=== PATIENT | male | born 1950 | race Caucasian/White ===

== ENCOUNTER 2017-01-14 05:26 | Inpatient (IN) ==
[2017-01-14] MEDS ORDERED: ATIVAN IV ONE (05:45)
[2017-01-14] MEDS ORDERED: ATIVAN ONE (05:46)
[2017-01-14 06:12] LABS: ALLEN TEST YES; BLOOD TYPE ARTERIAL; DRAW SITE R RADIAL; METHB 0.6 % (0.0-1.5); O2(CT) 13.5 mL/dL (15.0-23.0); PCO2(98.6) 26 mmHg (35-45); PO2(98.6) 106 mmHg (60-100); SAMPLE BLOOD; SAO2 98.2 % (95.0-100.0); THB 9.9 g/dL (11.5-17.4); pH(98.6) 7.41 (7.35-7.45)
[2017-01-14 06:14] LABS: MODALITY ROOM AIR
[2017-01-14 06:19] LABS: BASO% 0.2 % (0.0-0.8); HEMATOCRIT 32.7 % (42.0-52.0); HEMOGLOBIN 10.8 g/dL (14.0-18.0); IMM GRAN# 0.02 X1000 (0.0-0.04); IMM GRAN% 0.2 % (0.0-0.5); LYMPH# 0.41 X1000 (1.2-3.4); LYMPH% 3.7 % (20.5-51.1); MANUAL DIFF NEEDED? NO; MCH 31.7 PG (27-31); MCV 95.9 FL (81-99); MONO# 0.32 X1000 (0.11-0.59); MONO% 2.9 % (1.7-9.3); MPV 10.1 FL (7.4-10.4); PLT 225 X1000 (130-400); RBC 3.41 XMIL (4.7-6.1)
[2017-01-14 06:38] LABS: INR 0.97; PROTIME 10.2 Seconds (9.2-11.7); PTT 26.8 Seconds (22.0-36.0)
[2017-01-14 06:44] LABS: URINE CULTURE NEEDED? NO; URINE MICRO REVIEW NEEDED? NO; URINE SOURCE CATH
[2017-01-14 06:47] LABS: BILIRUBIN URINE NEGATIVE (NEGATIVE); BLOOD URINE NEGATIVE (NEGATIVE); COLOR YELLOW; GLUCOSE URINE TRACE mg/dL (NEGATIVE); LEUKOCYTES URINE NEGATIVE (NEGATIVE); NITRITE URINE NEGATIVE (NEGATIVE); PROTEIN URINE NEGATIVE (NEGATIVE); SP GRAVITY URINE 1.012; TURBIDITY URINE CLEAR (CLEAR); UROBILINOGEN URINE NORMAL (NORMAL)
[2017-01-14 06:49] LABS: UR EPITHELIAL CELLS <10 /HPF (<10); URINE BACTERIA NEGATIVE /HPF; URINE RBC <10 /HPF (<10); URINE WBC <10 /HPF (<10)
[2017-01-14 06:53] LABS: ALBUMIN 3.7 g/dL (3.5-5.0); CALCIUM 8.6 mg/dL (8.8-10.2); POTASSIUM 4.3 mmol/L (3.5-5.1); TOTAL BILIRUBIN 0.28 mg/dL (0.20-1.00)
[2017-01-14 06:58] LABS: UR AMPHETAMINES QUAL NONE DETECTED (NONE DETECT); UR BARBITUATES QUAL NONE DETECTED (NONE DETECT); UR BENZODIAZEPIN QUAL NONE DETECTED (NONE DETECT); UR CANNABINOIDS QUAL NONE DETECTED (NONE DETECT); UR COCAINE QUAL NONE DETECTED (NONE DETECT); UR METHADONE QUAL NONE DETECTED (NONE DETECT); UR OPIATES QUAL NONE DETECTED (NONE DETECT); UR OXYCODONE QUAL NONE DETECTED (NONE DETECT); UR PCP QUAL NONE DETECTED (NONE DETECT)
[2017-01-14] MEDS ORDERED: ATIVAN IV PRN (08:28)
[2017-01-14] MEDS ORDERED: D50W SYRINGE IV PRN (09:25)
[2017-01-14 09:50] LABS: IRON SATURATION 18 %; TIBC 283 ug/dL; TOTAL IRON 51 ug/dL (53-167); UNBOUND IRON 232 ug/dL (112-346)
[2017-01-14 09:53] LABS: HEMOGLOBIN A1C 7.7 % (4.8-6.0)
[2017-01-14 10:06] LABS: FREE T4 1.17 ng/dL (0.93-1.70)
[2017-01-14 10:20] LABS: FERRITIN 108 ng/mL (30-400)
[2017-01-14] MEDS ORDERED: DUONEB (A & A) INH PRN (11:00)
[2017-01-14] MEDS ORDERED: ZOFRAN IV PRN (11:00)
[2017-01-14] MEDS ORDERED: TYLENOL PO PRN (11:00)
[2017-01-14] MEDS: HUMULIN R SUBQ SCH ×3 (11:45→22:29)
[2017-01-14] MEDS: NS 1,000 ML IV SCH (11:45)
[2017-01-15] MEDS: NS 1,000 ML IV SCH (02:20)
[2017-01-15 05:40] LABS: MANUAL DIFF NEEDED? NO
[2017-01-15 05:59] LABS: INR 1.02; PROTIME 10.7 Seconds (9.2-11.7); PTT 28.8 Seconds (22.0-36.0)
[2017-01-15] MEDS: HUMULIN R SUBQ SCH ×4 (06:09→22:30)
[2017-01-15 06:13] LABS: ALBUMIN 2.9 g/dL (3.5-5.0); BASO% 0.8 % (0.0-0.8); CALCIUM 7.3 mg/dL (8.8-10.2); EOS# 0.11 X1000 (0.0-0.7); EOS% 1.3 % (0.0-10.0); HEMATOCRIT 28.2 % (42.0-52.0); HEMOGLOBIN 9.2 g/dL (14.0-18.0); LYMPH% 18.1 % (20.5-51.1); MAGNESIUM 1.9 mg/dL (1.5-2.7); MCH 31.5 PG (27-31); MCHC 32.6 g/dL (33-37); MCV 96.6 FL (81-99); MONO# 1.09 X1000 (0.11-0.59); MONO% 13.1 % (1.7-9.3); MPV 10.7 FL (7.4-10.4); NEUT% 66.7 % (42.2-75.2); PLT 197 X1000 (130-400); POTASSIUM 3.5 mmol/L (3.5-5.1); RBC 2.92 XMIL (4.7-6.1); TOTAL BILIRUBIN 0.61 mg/dL (0.20-1.00); TOTAL PROTEIN 4.8 g/dL (6.3-8.3)
[2017-01-15] MEDS: PRILOSEC PO SCH (08:25)
[2017-01-16] MEDS: HUMULIN R SUBQ SCH ×2 (06:19→13:05)
[2017-01-16] MEDS: PRILOSEC PO SCH (09:01)
[2017-01-16 09:20] VITALS: BP 146/58
== END 2017-01-16 14:00 | disposition home or self-care (01) ==
LOC: ED 05:26 → EDIPHOLD 10:54 → 3S 12:11 → 3N 01-15 17:31
PROVIDERS: ATTEND Internal Medicine

== ENCOUNTER 2017-01-17 10:39 | Inpatient (IN) ==
[2017-01-17] MEDS ORDERED: EFFEXOR XR PO ONE (14:31)
[2017-01-17 15:01] LABS: HEMATOCRIT 30.4 % (42.0-52.0); HEMOGLOBIN 10.2 g/dL (14.0-18.0); MCHC 33.6 g/dL (33-37); MCV 95.3 FL (81-99); MPV 10.7 FL (7.4-10.4); RBC 3.19 XMIL (4.7-6.1)
[2017-01-17 15:43] LABS: ALBUMIN 3.9 g/dL (3.5-5.0); CALCIUM 8.3 mg/dL (8.8-10.2); TOTAL BILIRUBIN 0.44 mg/dL (0.20-1.00); TOTAL PROTEIN 6.4 g/dL (6.3-8.3)
[2017-01-17] MEDS: HUMALOG SUBQ SCH ×2 (16:14→20:45)
--- NOTE | 2017-01-17 17:07 | HISTORY AND PHYSICAL ---
CHIEF COMPLAINT: Acute confusional state, unable to sleep last night. PRESENT ILLNESS: Mr. Hernandez is a 66-year-old gentleman followed for many years by Dr. Mally Bronson for multiple medical problems, including longstanding type 2 diabetes mellitus. He has not previously had problems with confusion or disorientation. He was admitted 01/14 after his family found him shaking in the bed unconscious around 4 in the morning and presumably a seizure. His fingerstick blood sugar by paramedics was somewhat low and he had a fairly extensive evaluation which included a CT of the brain, MRI and MRA of the brain, EEG and echocardiogram and carotid Dopplers. His CT and MRI were fairly unremarkable. His MRA showed no major branch occlusions. His carotid Doppler showed 50%-79% occlusions bilaterally but was not felt to require acute surgical intervention. Echocardiogram was normal with minimal to trace valvular regurgitations but normal left ventricular ejection fraction. His EEG was felt to be nonspecific slowing without obvious seizure foci. His seizure like episode was attributed to hypoglycemia. Since discharge yesterday morning his family has been more concerned about confusion. Last night he did not feel sleepy and the family insists he has not been to bed at all. At 2:45 this morning he was up taking a shower and by 4 o'clock was dressed and ready to go eat [place] food although they insisted that he stay home as none of the restaurants were open. He also has been unable to remember how to use his cell phone or the TV remote. His fingerstick blood sugar this morning was approximately 480. The usual results are 150-200. He received his usual 12 units of Tresiba insulin last night but has not had any of his NovoLog insulin today. When I asked him what he has eaten today he describes a lunch but stated he could not remember what he had for breakfast. His and daughter insisted that he had a sausage, egg and cheese biscuit for breakfast and had not had any lunch. PAST MEDICAL HISTORY: Remarkable for longstanding type 2 diabetes mellitus with some chronic kidney disease and recently diagnosed peripheral neuropathy when he presented with a left foot drop. He has history of mixed hyperlipidemia. He has a history of surgery for esophageal neoplasm in 2014. PAST SURGICAL HISTORY: Appendectomy in 1991. Esophagectomy and partial gastrectomy in 2014, Dr. Crawford. Cataract with intraocular lens in both eyes 2015. Abdominal hernia repair 2016. HOME MEDICATIONS: Tresiba 12 units at bedtime. NovoLog sliding scale according to fingerstick blood sugars. Actos 30 mg daily. Centrum 1 daily. Klor-Con 20 mEq 2 tablets once a day. Norvasc 5 mg daily. Prevacid 30 mg daily. Vitamin B12 1000 mcg IM once monthly. Vitamin D 2000 units twice a day. Lisinopril 20 mg daily. Venlafaxine ER 150 mg q.24 hours. The discharge summary yesterday does not list several these medications, particularly the venlafaxine and it possibly was stopped because of his seizure. FAMILY HISTORY: Positive for type 2 diabetes mellitus in multiple relatives. SOCIAL HISTORY: He is and lives with his . He has adult children. He is a retired accountant certified public. He does not use tobacco and drinks 2-3 glasses of red wine per week. He is up-to- date on pneumococcal and flu vaccinations. REVIEW OF SYSTEMS: General: No fever, chills, night sweats. He lost quite a bit of weight several years ago with his esophageal surgery and actually had a feeding tube for a short period of time. HEENT: Vision and hearing are adequate without recent changes. Respiratory: No cough, shortness of breath, sputum production or chronic lung disease. Cardiovascular : No recent chest pain, orthopnea, PND, pedal edema. No history of congestive heart failure. His skilled labor is Dr[facility] [place]. GI: He has a history of GE reflux since his surgery on the esophagus. He takes Prevacid for this. Denies any recent nausea , vomiting, diarrhea, constipation, bright red blood per rectum or melena. : No history of dysuria or hematuria or kidney stones. Neurological: As above. Psychiatric: Some history of depression. His family states he has not seemed depressed at all recently. No history of dementia or delirium previously. Musculoskeletal: Left footdrop as mentioned above. Also history of mild osteoarthritis in multiple joints. PHYSICAL EXAMINATION: VITAL SIGNS: Pending. GENERAL APPEARANCE: Alert, pleasant, mildly disoriented elderly gentleman in no acute distress. Sitting up in a chair. HEENT: Pupils are equal, round, reactive to light. Extraocular movements are intact. Oropharynx is benign with moist mucous membranes. NECK: Supple with no JVD, adenopathy, thyromegaly or bruits. LUNGS: Clear to auscultation anteriorly and posteriorly. CARDIOVASCULAR: Regular rate and rhythm. No murmurs or gallops. ABDOMEN: Soft, nontender with active bowel sounds. Mildly obese. GENITAL RECTAL EXAMS: Omitted. EXTREMITIES: No cyanosis, clubbing, or edema. Gait: Slight dragging of the left foot. Otherwise good balance and generally normal. DATABASE: Recent chest x-ray and other studies were reviewed. CBC and chemistry profile are pending. He had a TSH recently of 8.4, with a borderline low free T4, and may well warrant thyroid replacement. ASSESSMENT: 1. Acute delirium with multiple possible precipitating factors. He had a significant hypoglycemic spell with a seizure followed by being in the hospital for several days and a sleepless night last night. It is also somewhat likely that his venlafaxine was abruptly discontinued. While this is not optimal for patients with seizures if you have an alternative explanation for the seizure continuing it is probably reasonable. 2. Type 2 diabetes mellitus with both hypo and hyperglycemia recently. Will use the moderate dose sliding scale Humalog and low-dose Tresiba. 3. Mixed hyperlipidemia. His current medication list does not have the pravastatin he was on before and we will check with his provider for the status. TREATMENT PLAN: Admit to the hospital and await his pending laboratory. Will probably need some extra sliding scale insulin. A 2000 calorie low carbohydrate diabetic diet has been ordered. I do not think further imaging would be helpful at this time. I have ordered a dose of Rozerem and Seroquel tonight. Further decisions will be based on response to this management. cc: Claudio Cassidy MD MTDD
[2017-01-17] MEDS: ROZEREM PO SCH (18:44)
[2017-01-17] MEDS: LOVENOX SUBQ SCH (20:10)
[2017-01-17] MEDS: NON-FORMULARY BULK MED SUBQ SCH (20:45)
[2017-01-17] MEDS ORDERED: SEROQUEL PO SCH (21:00)
[2017-01-18] MEDS: PRILOSEC PO SCH (06:04)
[2017-01-18] MEDS: HUMALOG SUBQ SCH ×4 (06:04→22:28)
[2017-01-18] MEDS ORDERED: LOPRESSOR PO SCH (09:00)
[2017-01-18] MEDS: EFFEXOR XR PO SCH (09:54)
[2017-01-18] MEDS: PRINIVIL PO SCH (09:54)
[2017-01-18] MEDS: ACTOS PO SCH (09:54)
[2017-01-18] MEDS: ROZEREM PO SCH (18:39)
[2017-01-18] MEDS: NON-FORMULARY BULK MED SUBQ SCH (22:27)
[2017-01-18] MEDS: LOVENOX SUBQ SCH (22:28)
[2017-01-19] MEDS: PRILOSEC PO SCH (07:36)
[2017-01-19] MEDS: HUMALOG SUBQ SCH (07:36)
[2017-01-19] MEDS: EFFEXOR XR PO SCH (08:36)
[2017-01-19] MEDS: PRINIVIL PO SCH (08:36)
[2017-01-19] MEDS: ACTOS PO SCH (08:36)
[2017-01-19 08:44] VITALS: BP 152/63
--- NOTE | 2017-01-19 09:26 | DISCHARGE SUMMARY ---
ADMISSION DATE: 01/17/2017 DISCHARGE DATE: 01/19/2017 FINAL DIAGNOSES: 1. Acute delirium, multifactorial. 2. Mild cognitive impairment, possibly related to recent episode of hypoglycemia. 3. Type 2 diabetes mellitus with diabetic polyneuropathy. 4. Possible hypothyroidism. 5. History of esophageal cancer, status post esophagectomy and partial gastrectomy. 6. Gastroesophageal reflux disease. PRESENT ILLNESS: Mr. Hernandez is a 66-year-old gentleman followed by [facility]was, for multiple medical problems including longstanding type 2 diabetes mellitus. He was briefly hospitalized here from 01/14/2017, discharged on 01/16/2017 for a seizure-like episode attributed to hypoglycemia. Multiple imaging studies were unremarkable, although he was noted to have bilateral carotid occlusions approaching surgical significance. He was seen by neurology and felt not to require seizure medications unless he had another seizure. On the morning of this admission, his family called his nurse practitioner and reported that he was extremely confused and disoriented. He had not slept the night before and had been up at 2:45 in the morning, taking a shower, getting ready to go out to eat. His fingerstick blood sugar that morning at home was 480. PHYSICAL EXAMINATION: General: Revealed an alert and pleasant but mildly disoriented, elderly gentleman in no distress. HEENT: Examination was unremarkable. Lungs: Clear. Cardiac Examination: Regular rate and rhythm. No murmurs. Abdomen: Soft and nontender. LABORATORY DATA: CBC and chemistry panel were unremarkable. HOSPITAL COURSE: He was admitted with a diagnosis of delirium with possible early dementia or mild cognitive impairment. He was prescribed a dose of Seroquel at bedtime along with Rozerem. He slept well and the following morning, was more oriented and fully cooperative. He does still seem to have some mild cognitive impairment today. He thought it was Friday when it was actually Friday. He gave the month as September instead of January. He was able to give the year of 2016 and he knew that he was in [facility]. He still seems to have some apraxia regarding cell phone use. I talked to his and she has agreed to do his fingersticks and insulin for the time being. I hope his cognitive impairment is a residual effect of transient hypoglycemia and will improve with time. I feel he needs to return to see Dr. Durbin or Dr. Do, his neurologist, in a week or 2 for further evaluation. His nurse practitioner can perform a mental status evaluation in the next week or 2 as well. His TSH last week in the hospital was slightly elevated and bears repeating. DISCHARGE MEDICATIONS: Tresiba 12 units subcutaneous daily at bedtime, Prevacid 30 mg daily before breakfast, venlafaxine ER 75 mg daily, amlodipine 2.5 mg q.a.m., lisinopril 20 mg daily, pioglitazone 30 mg daily. He is to stop furosemide, potassium chloride, and metoprolol. He has a sliding scale instruction at home for NovoLog 1 unit subcutaneously for every 50 mg per dL his blood sugar is over 150.Pravastatin 20 mg qHS cc: Claudio Cassidy MD MTDD
--- NOTE | 2017-01-20 06:39 | EKG Report ---
Test Performed on : 01/17/2017 5:44:49 PM Test Reason : bradycardia Blood Pressure : / mmHG Vent. Rate : 061 BPM Atrial Rate : 061 BPM P-R Int : 174 ms QRS Dur : 088 ms QT Int : 438 ms P-R-T Axes : 076 058 065 degrees QTc Int : 440 ms Normal sinus rhythm. Normal ECG When compared with ECG of 15-JAN-2017 07:05, No significant change was found Confirmed by Rob Hawkins MD ([id number]) on 01/22/2017 8:04:22 AM
== END 2017-01-19 10:14 | disposition home or self-care (01) ==
LOC: DIRADM → OBSVTOIN 10:39 → 3N 13:18
PROVIDERS: ADMIT Internal Medicine; ATTEND Internal Medicine